=== PATIENT | female | born 1950 | race Caucasian/White ===

== ENCOUNTER 2017-08-11 13:49 | Inpatient (IN) | payer MEDICARE, OTHER ==
[2017-08-11] MEDS ORDERED: Morphine 4 MG/ML VIAL ONE ×3 (13:53→16:48)
[2017-08-11 15:31] LABS: #Eosinphils 0.1 thou/uL (0.0-0.7); #Monocytes 0.4 thou/uL (0.11-0.59); #Neutrophils 5.9 thou/uL (1.40-6.50); %Basophils 0.3 % (0.0-1.0); %Lymphocytes 13.9 % (21.0-51.0); %Monocytes 5.8 % (0.0-10.0); Hemoglobin 12.8 g/dL (12.0-16.0); Mean Corpuscular HGB CONC 33.2 g/dL (32.0-36.0); Mean Corpuscular Hemoglobin 31.3 pg (27.0-31.0); Mean Corpuscular Volume 94.2 fl (81.0-99.0); Mean Platelet Volume 6.8 fL (7.4-10.4); Platelet Count 233 thou/uL (130-400); RBC Distribution Width 11.1 % (11.5-14.5); Red Blood Cell (RBC) Count 4.09 mill/uL (4.20-5.40); White Blood Cell (WBC) Count 7.5 thou/uL (4.8-10.8)
--- NOTE | 2017-08-11 15:36 | RAD ---
LEFT SHOULDER RADIOGRAPHS 3 VIEWS: Date: 08/11/17 PROVIDED CLINICAL HISTORY: Left shoulder pain status post fall. FINDINGS: Comminuted fracture involves the left proximal humerus involving the greater tuberosity and surgical neck. The glenohumeral relationship is preserved. There is apex medial angulation at the surgical nec k fracture. There is a nodular density overlying the left upper lung zone, for which follow-up 2 view chest radiograph is recommended. IMPRESSION: 1. Comminuted left proximal humeral fracture. 2. Nodular density left upper lung zone, for which follow-up PA and lateral chest radiographs are re commended. CODE LN. POS: [facility]
--- NOTE | 2017-08-11 15:38 | RAD ---
LEFT KNEE RADIOGRAPHS 2 VIEWS: Date: 08/11/17 PROVIDED CLINICAL HISTORY: Left knee pain status post injury. FINDINGS: Evaluation is limited as the patient is unable to tolerate routine positioning. Transversely oriented , comminuted, not significantly displaced fracture involves the proximal tibial metaphyseal region. M ildly displaced fracture involves the left proximal fibular metaphyseal region. Nondisplaced lateral tibial plateau fracture may also be present. IMPRESSION: Proximal tibial and fibular fractures as above. Orthopedic consultation is recommended. POS: [facility]
--- NOTE | 2017-08-11 15:40 | RAD ---
LEFT FORELEG 2 VIEWS: Date: 08/11/17 PROVIDED CLINICAL HISTORY: Left leg pain. FINDINGS/IMPRESSION: Proximal fibular and tibial fractures are described on concurrent left knee radiographs. Please see t hat report. No additional fracture is evident. POS: [facility]
[2017-08-11 15:56] LABS: ALT (SGPT) 8 U/L (8-55); AST (SGOT) 16 U/L (5-34); Albumin 3.7 g/dL (3.4-4.8); Alkaline Phosphatase 53 U/L (40-150); Anion Gap 11 mmol/L (10-20); BUN (Urea Nitrogen) 13 mg/dL (9.8-20.1); Bilirubin, Total 0.8 mg/dL (0.2-1.2); Calc. Creatinine Clearance 0 mL/min (70-130); Calcium 8.5 mg/dL (7.8-10.44); Carbon Dioxide 21 mmol/L (23-31); Chloride 110 mmol/L (98-107); Estimated GFR-MDRD 80; Globulin 2.1 g/dL (2.4-3.5); Glucose 115 mg/dL (80-115); Potassium 3.2 mmol/L (3.5-5.1); Protein, Total 5.8 g/dL (6.0-8.3); Sodium 139 mmol/L (136-145)
[2017-08-11 15:58] LABS: CKMB 1.4 ng/mL (0-6.6); Troponin I Less than 0.010 ng/mL (< 0.028)
--- NOTE | 2017-08-11 16:15 | CT ---
CT LEFT KNEE: Date: 08/11/17 PROVIDED CLINICAL HISTORY: Fracture. FINDINGS: There is a comminuted fracture involving the left proximal tibial metaphyseal and epiphyseal regions. This demonstrates primarily obliquely oriented fracture plane extending from proximally medially to distally laterally at the proximal tibial metaphyseal region. There is conspicuous depressed fracture involving the lateral tibial plateau with about 8 mm of depression. Fracture planes extend into the central aspects of the proximal tibia in region of tibial eminence, as well as intraarticular at the anterior aspect of the medial tibial plateau. There is no significant step-off in the anterior aspec t of the medial tibial plateau fracture component. There is comminuted fracture involving the proximal fibular metaphyseal region extending into the reg ion of the fibular styloid. There is a large lipohemarthrosis. Fluid density is seen within portions of the soleus and popliteus musculature compatible with muscula r strains. IMPRESSION: 1. Comminuted intraarticular proximal tibial fracture as described above. 2. Comminuted proximal fibular fracture as described above. POS: [facility]
[2017-08-11] MEDS ORDERED: CEFAZOLIN/Water 2 GM/20 ML SYRINGE SLOW IVP SCH (16:30)
[2017-08-11 16:43] LABS: Bilirubin Negative (Negative); Blood, Urine Negative (Negative); Clarity CLEAR (Clear); Glucose, Urine (Dipstick) Negative (Negative); Leukocyte Negative (Negative); Nitrite Negative (Negative); Protein, Urine (Dipstick) Trace mg/dL (Neg-Trace); pH, Urine 7.5 (5.0-9.0)
[2017-08-11] MEDS ORDERED: Acetaminophen 500 MG TAB PO PRN (17:32)
[2017-08-11] MEDS ORDERED: Dextrose 50% Abboject 50 ML SYRINGE SLOW IVP PRN (17:32)
[2017-08-11] MEDS ORDERED: Ondansetron HCl/PF 4 MG/2 ML Vial IVP PRN (17:32)
[2017-08-11] MEDS ORDERED: Dextrose 5% in Water 1,000 ML IV PRN (17:32)
[2017-08-11] MEDS ORDERED: traMADol HCl 50 MG TAB PO PRN (19:16)
[2017-08-11 19:23] LABS: Magnesium 1.8 mg/dL (1.6-2.6)
[2017-08-11 19:30] LABS: Phosphorus Less than 1.0 mg/dL (2.3-4.7)
[2017-08-11] MEDS: Morphine 4 MG/ML VIAL SLOW IVP PRN ×2 (19:32→23:37)
--- NOTE | 2017-08-11 19:37 | HP ---
REQUESTING PHYSICIAN: Dr. Edmonds, ED. ADMITTING PHYSICIAN: Dr. Yasir Ramirez. CONSULTING PHYSICIAN: Dr. Resendez, Orthopedics; Dr. Jean, Cardiology. HISTORY OF PRESENT ILLNESS: Ms. Aguila is a 66-year-old female who was in her normal state of health today. She was up on a ladder, making repairs to her home approximately 3-4 feet. She slipped and fell off the ladder, landing on her left side. She reports that she did not lose consciousness. She was not dizzy prior to the fall. She was attempting to turn around on the ladder when she fell. She had pain to her left knee and left arm. She was transported to the emergency department where workup identified a left proximal humerus fracture and a left proximal tib/fib fracture. Trauma Services was consulted for admission and management. Dr. Resendez was also consulted for management of orthopedic injuries. She reports that pain is exacerbated by movement. Pain has been relieved by administration of pain medication. PAST MEDICAL HISTORY: 1. Hyperlipidemia. 2. High cholesterol. 3. Mitral valve prolapse. 4. Cardiomyopathy. 5. Left bundle branch block. 6. Paroxysmal atrial tachycardia. 7. Congestive heart failure. PAST SURGICAL HISTORY: 1. Hysterectomy. 2. D&C. SOCIAL HISTORY: Denies tobacco, denies alcohol, denies drugs. FAMILY HISTORY: Noncontributory. ALLERGIES: No known drug allergies. CURRENT MEDICATIONS: 1. Aspirin 81 mg once daily. 2. Lasix 20 mg twice daily. 3. Carvedilol 6.25 mg twice daily. 4. Lisinopril 10 mg once daily. 5. Potassium 10 mEq twice daily. LABORATORY DATA: Hematology: WBC 7.5, RBC 4.09, hemoglobin 12.8, hematocrit 38.5, platelets 233. Chemistry: Sodium 139, potassium 3.2, chloride 110, carbon dioxide 21, BUN 13, creatinine 0.73, glucose 115. REVIEW OF SYSTEMS: Constitutional: The patient denies chills, fever, recent weight loss or general malaise. HEENT: Denies drainage from nose or ears. Denies vision changes. Denies neck pain. Cardiovascular: Denies chest pain, palpitations or peripheral edema. Respiratory: Denies cough, denies shortness of breath. Denies wheezing. Gastrointestinal: Denies abdominal pain, denies nausea, vomiting, diarrhea or constipation. Musculoskeletal: Reports left shoulder pain, left knee pain, reports fall from ladder. Skin: Denies rashes. Denies other injury. Neurologic: Denies focal weakness, denies headaches, denies dizziness. Denies seizures. Heme/Lymphatic: Denies abnormal bleeding. PHYSICAL EXAMINATION: VITAL SIGNS: Blood pressure 151/77, pulse 77, respirations 14, O2 sat 98% on room air. GENERAL: Well-developed, well-nourished female, lying in bed, in no acute distress. HEENT: Atraumatic, normocephalic. Trachea midline. No JVD. No posterior neck tenderness. RESPIRATORY: Bilateral breath sounds clear. No respiratory distress. Chest movement symmetrical. No pain to palpation on chest. CARDIOVASCULAR: Regular rate and rhythm. Heart sounds normal. ABDOMEN: Soft, nontender, nondistended. BACK: No pain. NEUROLOGIC: GCS of 15. Awake, alert, oriented x3. No focal motor or sensory deficits. EXTREMITIES: Pain in her left arm, sling in place. Pain to the left knee and left near the tibia area. Neurovascularly intact all extremities. Cap refill brisk in all extremities. SKIN: Warm and dry, color within normal limits. PSYCHIATRIC: Normal mood and affect. ASSESSMENT: 1. Status post fall from ladder. 2. Left proximal humerus fracture. 3. Left proximal tibia fracture. 4. History of cardiomyopathy with left bundle branch block and mitral valve prolapse. The patient is a longtime patient of Dr. Nguyen, Cardiology. 5. Acute traumatic pain. PLAN: 1. Admit to hospital by Trauma Services. 2. Consult to Dr. Resendez, Orthopedics. Dr. Resendez plans to take patient to the operating room for fixation of left tibial fracture, preferably tomorrow. 3. Cardiology consult, Dr. Jean. I appreciate recommendations. 4. Cardiac diet until midnight. N.p.o. after midnight. 5. Electrolyte replacement. We will replace potassium. 6. Restart home medications when medications are reconciled after floor admission. The patient was reviewed with Dr. Ramirez, who agrees with plan. [facility]
[2017-08-11] MEDS ORDERED: Potassium Phosphate 30 MMOL in Sodium Chloride 0.9% 500 ML IVPB SCH (20:00)
--- NOTE | 2017-08-11 20:44 | CON ---
DATE OF CONSULTATION: 08/11/2017 REASON FOR CONSULTATION: Preoperative evaluation. PRIMARY SLIMER: Dr. Adama Nguyen. HISTORY OF PRESENT ILLNESS: Ms. Aguila is a pleasant 66-year-old white female who comes to the [facility] after a fall. She was on a ladder, repairing some things on her home and she slipped and fell on her left side. She broke her leg and her arm, the proximal tibia and humerus, and is scheduled to patiño surgery for this tomorrow. She has significant history of a cardiomyopathy. She actually was jo gnosed in 2013 with nonischemic cardiomyopathy. Her EF was severely depressed at that time. 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 She got on medications and her LV function eventually returned back to normal. She followed with Dr. Nguyen for about 2 years, the last visit was in 01/2016. Her last echocardiogram was in 02/07 16 with an EF of 55% to 60% with mild MR and diastolic dysfunction. She has not had any problems sin ce. She has been followed up either. She denies any chest pain, tightness, pressure, no shortness o f breath. PAST MEDICAL HISTORY: 1. Hyperlipidemia. 2. History of supraventricular tachycardia in the distant past. 3. History of nonischemic cardiomyopathy, improved significantly with medications, thought to be vir al in origin. 4. History of mitral valve prolapse, but this was negated on most recent echocardiogram. PAST SURGICAL HISTORY: 1. Hysterectomy. 2. D&C. 3. Left heart catheterization that was normal in 2013. OUTPATIENT MEDICATIONS: 1. Aspirin 81 mg a day. 2. Lasix 20 mg twice a day. 3. Carvedilol 6.25 mg b.i.d. 4. Lisinopril 10 mg a day. 5. Potassium 10 mEq twice a day. ALLERGIES: No known drug allergies. FAMILY HISTORY: Noncontributory. SOCIAL HISTORY: No alcohol, tobacco or drugs. REVIEW OF SYSTEMS: A 12-point review of systems was done and is all negative unless stated in the hi story of present illness. PHYSICAL EXAMINATION: VITAL SIGNS: Temperature 97.6, pulse 83, respiratory rate 18, satting 100% on room air, blood pressu re 143/77. GENERAL: Awake, alert, oriented x3, in no distress. HEENT: Normocephalic, atraumatic. NECK: Supple. LUNGS: Clear to auscultation. CARDIOVASCULAR: S1, S2. No S3, S4. No murmurs, no rubs. ABDOMEN: Soft, positive bowel sounds. EXTREMITIES: No edema. SKIN: Warm and dry. LABORATORY DATA: Laboratory work was reviewed. CBC is unremarkable. Chemistry with a low potassium at 3.2, otherwise unremarkable. Phosphorus was less than 1, magnesium 1.8. Troponin is negative x1 . Albumin of 3.7. UA was unremarkable. Multiple x-rays and lower extremity CTs were done. EKG was done in the ER shows left bundle branch block. ASSESSMENT: 1. Preoperative evaluation. 2. History of nonischemic cardiomyopathy in the distant past. 3. Normal coronaries in 2013. 4. Chronic left bundle branch block. PLAN: She is asymptomatic from the cardiac perspective and she has improved to her LV function to no rmal from an echo in 2016. At this point, we will ask to reevaluate with an echocardiogram to make s ure her LV function remains normal. This is mostly to know what to expect with anesthesia and use of IV fluids. She should be able to undergo said surgery. She would be intermediate risk for an inter mediate risk procedure. Echocardiogram and surgery after that. Thank you for letting us to participate in the care of your patient. Dr. Nguyen, her primary Cardi ology, will follow up in the morning.
[2017-08-11] MEDS: Carvedilol 6.25 MG TAB PO SCH (21:02)
[2017-08-11] MEDS: Acetaminophen 1,000 MG in Premix Bag 1 BAG IVPB SCH (23:44)
[2017-08-12] MEDS: Sodium Chloride 0.9% 1,000 ML IV SCH ×3 (01:29→18:07)
[2017-08-12] MEDS: Morphine 4 MG/ML VIAL SLOW IVP PRN ×3 (04:07→16:24)
[2017-08-12 05:30] LABS: #Lymphocytes 1.6 thou/uL (1.20-3.40); #Monocytes 0.6 thou/uL (0.11-0.59); #Neutrophils 5.7 thou/uL (1.40-6.50); %Basophils 0.1 % (0.0-1.0); %Eosinophils 0.5 % (0.0-10.0); %Lymphocytes 19.8 % (21.0-51.0); %Monocytes 7.8 % (0.0-10.0); %Neutrophils 71.8 % (42.0-75.0); Hemoglobin 11.5 g/dL (12.0-16.0); Mean Corpuscular HGB CONC 34.1 g/dL (32.0-36.0); Mean Corpuscular Hemoglobin 31.4 pg (27.0-31.0); Mean Corpuscular Volume 92.1 fl (81.0-99.0); Mean Platelet Volume 6.9 fL (7.4-10.4); Platelet Count 216 thou/uL (130-400); RBC Distribution Width 11.2 % (11.5-14.5); Red Blood Cell (RBC) Count 3.67 mill/uL (4.20-5.40)
[2017-08-12 05:45] LABS: Anion Gap 11 mmol/L (10-20); BUN (Urea Nitrogen) 12 mg/dL (9.8-20.1); Calc. Creatinine Clearance 0 mL/min (70-130); Calcium 8.9 mg/dL (7.8-10.44); Carbon Dioxide 23 mmol/L (23-31); Chloride 105 mmol/L (98-107); Estimated GFR-MDRD 81; Glucose 125 mg/dL (80-115); Magnesium 2.2 mg/dL (1.6-2.6); Phosphorus 4.3 mg/dL (2.3-4.7); Potassium 3.9 mmol/L (3.5-5.1); Sodium 135 mmol/L (136-145)
[2017-08-12] MEDS: Acetaminophen 1,000 MG in Premix Bag 1 BAG IVPB SCH ×2 (06:32→16:08)
[2017-08-12] MEDS: Carvedilol 6.25 MG TAB PO SCH ×2 (06:32→20:51)
[2017-08-12] MEDS: Lisinopril 20 MG TAB PO SCH (08:16)
[2017-08-12] MEDS ORDERED: Prevnar 13-Val Conj/PF 0.5 ML SYRINGE IM ONE (09:00)
[2017-08-12] MEDS ORDERED: FLU VACC TS2017-18 (>65YR) 0.5 ML SYRINGE IM ONE (09:00)
--- NOTE | 2017-08-12 09:03 | CON ---
DATE OF CONSULTATION: 08/12/2017 ORTHOPEDIC CONSULTATION NOTE REQUESTING PHYSICIAN: Dr. Yasir Ramirez. HISTORY OF PRESENT ILLNESS: Ms. Aguila is a pleasant 66-year-old lady who was accompanied by her husb and in the emergency room this evening. They report that she was standing on a ladder to make some h ome repairs and fell approximately 3-4 feet, landing on her left side. There was no loss of consciou sness. She was not dizzy prior to the fall. She reports immediate left knee pain and left proximal humerus pain. Upon arrival at [facility], x-rays were obtained that showed a left tibial plateau fra cture with bicondylar as well as a left proximal humerus fracture that involved the tuberosities as w ell as the surgical neck of the humerus. Patient now admitted to the Trauma Service and orthopedic c onsultation requested for the above described injuries. PAST MEDICAL HISTORY: Remarkable for hyperlipidemia, mitral valve prolapse, cardiomyopathy, bundle b ranch block, and paroxysmal atrial tachycardia. PAST SURGICAL HISTORY: Includes hysterectomy and D&C. SOCIAL HISTORY: She denies tobacco, alcohol, or drugs. FAMILY HISTORY: Noncontributory. MEDICATIONS: Include aspirin, Lasix, carvedilol, lisinopril and potassium replacement. ALLERGIES: None known. REVIEW OF SYSTEMS: Denies recent fevers, chills or sweats. Denies chest pain or shortness of breath . Denies numbness or tingling in the lower extremities. PHYSICAL EXAMINATION: VITAL SIGNS: Blood pressure 151/77, heart rate 77, respiratory rate of 14, O2 saturations 98% on cindy m air. GENERAL: She is found to be a very pleasant lady lying in bed in no acute distress. Again, is at bedside. HEENT: Atraumatic, normocephalic. HEART: Shows a regular rate and rhythm. She does have a slight systolic ejection murmur. LUNGS: Clear to auscultation bilaterally with no distress and good air movement. Chest wall is nont david. ABDOMEN: Flat and nontender with normal bowel sounds. EXTREMITIES: Remarkable for right upper extremity that is atraumatic. The left upper extremity is r emarkable for swelling at the shoulder, although elbow, wrist and hand are atraumatic. The arm is in a sling at the time of exam. She has intact sensation in the radial, median, and ulnar distribution s. The lower extremities are remarkable for an atraumatic right lower extremity. The left lower ext remity is remarkable for a knee immobilizer that is in place. She has no pain in the groin with logr olling. She has atraumatic ankle and foot. She has intact sensation over the dorsum and plantar raul faces of the foot and a 1+ dorsalis pedis pulse. The knee is remarkable for hemarthrosis, although n o gross malalignment is noted. Her calf compartments are soft and she does not have pain with passiv e stretch. LABORATORY DATA AND IMAGING DATA: She is found to have a white count of 7.5, hematocrit of 38.5 and 233,000 platelets. X-rays today, 2-view x-ray of the shoulder was obtained that shows a 3-part proxi mal humerus fracture with minimal displacement. X-rays of the knee were obtained on the left side th at show a bicondylar tibial plateau fracture with joint depression laterally and follow up CT scan of the left proximal tibia confirmed the bicondylar nature of this fracture as well as the significant joint depression on the lateral side. ASSESSMENT: Patient is status post fall from ladder sustaining left proximal humerus fracture, left comminuted tibial plateau fracture. The patient with significant history of cardiomyopathy. PLAN: At this time, patient will be admitted to Trauma Service. We will obtain a Cardiology consult ation given the extensive history. The patient has pending the outcome of this on Cardiology consult ation. We will plan on proceeding with open reduction and internal fixation of the left tibial plate au. We will proceed with nonsurgical management of the left proximal humerus. Today, I discussed wi th patient the risks and benefits of surgery. These risks include but are not limited to bleeding, i nfection, nerve injury, DVT, PE, knee arthritis, loss of limb or life. Patient appears to understand and does wish to proceed. Consent will be obtained prior to surgery.
--- NOTE | 2017-08-12 11:25 | PRG-2 ---
DATE OF SERVICE: 08/12/2017 ATTENDING PHYSICIAN: Dr. Adrian Clark. SUBJECTIVE: Ms. Aguila is a 66-year-old female, status post a fall from a ladder about 3-4 feet yesterday. The patient sustained a left proximal humerus fracture and a left tibial plateau fracture. She reports that her pain is controlled with pain medications as long as she is not moving her arm or leg. The patient is still pending surgery at this time. OBJECTIVE: VITAL SIGNS: Temperature 97.6, pulse 92, blood pressure 117/71, respiratory rate 14, O2 sat 98% on room air. GENERAL: A well-developed, well-nourished female, in no acute distress. HEENT: Normocephalic, atraumatic. Moist mucous membranes. RESPIRATORY: No use of accessory muscles of respiration. LUNGS: Clear to auscultation bilaterally. CARDIOVASCULAR: Regular rate and rhythm. ABDOMEN: Nondistended, soft, nontender. NEUROLOGIC: GCS of 15, awake, alert, and oriented x3. EXTREMITIES: Left arm immobilized with sling in place. Pain in the left knee. Cap refill less than 1 second in all extremities. ASSESSMENT: 1. Status post fall from the ladder approximately 3-4 feet. 2. Left proximal humerus fracture. 3. Left proximal tibia fracture. 4. History of nonischemic cardiomyopathy with a left bundle branch block and mitral valve prolapse. 5. Acute traumatic pain. PLAN: 1. Surgery today with Dr. Resendez of Orthopedics, pending echo results for cardiac clearance with the patient's cardiomyopathy history. 2. Pain control with morphine, tramadol, and IV Tylenol. We will transition to p.o. after surgery. 3. NS at 120. 4. N.p.o. until surgery. After surgery, we will advance diet as tolerated. 5. Continue home medications for her nonischemic cardiomyopathy. The patient was reviewed with Dr. Clark, who agrees with the plan. [facility]
[2017-08-12] MEDS ORDERED: CEFAZOLIN/Water 2 GM/20 ML SYRINGE ONE (11:46)
[2017-08-12] MEDS ORDERED: Bupivacaine/Epinephrine 0.25% 30 ML VIAL ONE (12:19)
[2017-08-12] MEDS ORDERED: Fentanyl 250 MCG/5 ML VIAL ONE (13:40)
[2017-08-12] MEDS ORDERED: Ondansetron HCl/PF 4 MG/2 ML Vial IVP PRN (14:09)
[2017-08-12] MEDS ORDERED: Promethazine HCl 25 MG/ML VIAL SLOW IVP PRN (14:09)
[2017-08-12] MEDS ORDERED: Promethazine HCl 25 MG/ML VIAL IM PRN (14:09)
--- NOTE | 2017-08-12 14:38 | OP ---
DATE OF PROCEDURE: 08/12/2017 OPERATION: Open reduction and internal fixation of left bicondylar tibial plateau fracture. PREOPERATIVE DIAGNOSIS: Left bicondylar tibial plateau fracture. POSTOPERATIVE DIAGNOSIS: Left bicondylar tibial plateau fracture. COMPLICATIONS: None. ESTIMATED BLOOD LOSS: Minimal. SURGEON: Yosi Lee M.D. ANESTHESIA: General plus regional. [employer]PER[employer] HEARTH FURNACE: Jaclyn Chadwick PA-C INDICATIONS: Ms. Aguila is a 66-year-old female, who fell from a ladder. She fractured her left bico ndylar tibial plateau as well as her left humerus. She was indicated for open reduction and internal fixation to restore anatomic alignment and promote healing. Risks have been reviewed in detail. e has elected to proceed with the operation. DESCRIPTION OF PROCEDURE: Ms. Aguila was identified in the preoperative holding area. Her correct ex tremity was marked. She was carried to the operating room. She was positioned supine. General anes thesia was induced. A multidisciplinary timeout was performed. The left lower extremity was prepped and draped in sterile fashion. We began the procedure with a posterior medial approach to the tibia. We dissected down through the subcutaneous tissues to the fascia, which was incised. We then worked down to the bony level. We us ed an elevator to expose the posteromedial cortex of the tibia. We encountered the fracture in a red uced, this using traction and a reduction clamp. Once we had an anatomic reduction, we took x-rays c onfirming this. At this point, we applied a [employer] posterior medial tibial plate. Multiple screws were placed distally and proximally. We locked the plate to the bone, fixing our medial sided fractu re. Again, we took x-ray images. Next, we moved to the lateral tibia. We made an anterior lateral incision, dissected down through the subcutaneous tissues to the fascia, which was opened. We expose d the underlying lateral tibial plateau. We performed a submeniscal approach as well. At this point , we reflected the lateral tibial cortex exposing the underlying impacted joint surface. This articu lar fragment was anatomically reduced using a reduction forceps back to the lateral cortex. It was e levated back into its anatomic position. At this point, the lateral cortex was folded back into plac e and squeeze with a reduction clamp. We then took x-ray images. We placed a lateral plate in place , multiple locking and nonlocking screws proximally and distally, affixing our plate to the bone and performing a raft technique for our impacted articular fragments. Again, we irrigated. We then clos ed with 0 Vicryl suture, 2-0 Vicryl suture and kalpana for the skin. Local anesthetic was placed. T he patient had a sterile dressing applied. We then went to the recovery room in good condition. IMPLANTS: A [employer] anterior lateral tibial plate 3.5 mm locking and 4-hole posterior medial locking plate was used from [employer].
[2017-08-12] MEDS ORDERED: Fentanyl 100 MCG/2 ML VIAL ONE ×2 (14:44→15:08)
[2017-08-12] MEDS ORDERED: PHENYLEPHRINE-NS 100 MCG/ML 10 ML SYRINGE ONE (15:43)
[2017-08-12] MEDS ORDERED: Dexamethasone 20 MG/5 ML VIAL ONE (15:43)
[2017-08-12] MEDS ORDERED: Lidocaine 1% PF 5 ML VIAL ONE (15:43)
[2017-08-12] MEDS ORDERED: Ondansetron HCl/PF 4 MG/2 ML Vial ONE (15:43)
[2017-08-12] MEDS ORDERED: PROPOFOL 200 MG/20 ML VIAL ONE (15:43)
[2017-08-12] MEDS ORDERED: Acetaminophen 1,000 MG in Premix Bag 1 BAG IVPB SCH (15:45)
[2017-08-12] MEDS ORDERED: traMADol HCl 50 MG TAB PO PRN (16:44)
[2017-08-12] MEDS: Ibuprofen 600 MG TAB PO SCH ×2 (17:42→23:01)
[2017-08-12] MEDS: Acetaminophen 500 MG TAB PO SCH ×2 (17:42→23:00)
[2017-08-12] MEDS: traMADol HCl 50 MG TAB PO SCH ×2 (17:42→23:00)
--- NOTE | 2017-08-12 17:55 | RAD ---
LEFT TIBIA AND FIBULA 2 VIEWS: Date: 08/12/17 HISTORY: Open reduction and internal fixation. COMPARISON: CT dated 08/11/17. FINDINGS: Improved alignment of the tibial plateau fracture with medial and lateral plate and screw fixation. C omminuted fibular head and neck fracture similar. IMPRESSION: Improved alignment post fixation. POS: [facility]
[2017-08-12] MEDS ORDERED: Furosemide 20 MG TAB PO SCH (20:45)
[2017-08-12] MEDS: HYDROcodone/Acetaminophen 10/325 mg Tablet PO PRN (20:51)
[2017-08-12] MEDS: CEFAZOLIN/Water 2 GM/20 ML SYRINGE SLOW IVP SCH (20:52)
[2017-08-13] MEDS: HYDROcodone/Acetaminophen 10/325 mg Tablet PO PRN (03:01)
[2017-08-13] MEDS: CEFAZOLIN/Water 2 GM/20 ML SYRINGE SLOW IVP SCH (03:07)
[2017-08-13] MEDS: Ibuprofen 600 MG TAB PO SCH (05:00)
[2017-08-13] MEDS: Acetaminophen 500 MG TAB PO SCH ×2 (05:01→09:10)
[2017-08-13] MEDS: traMADol HCl 50 MG TAB PO SCH ×4 (05:01→21:16)
[2017-08-13] MEDS ORDERED: Furosemide 20 MG TAB PO SCH ×2 (06:00→14:00)
[2017-08-13] MEDS: Enoxaparin Sodium 40 MG/0.4 ML SYRINGE SC SCH (09:10)
[2017-08-13] MEDS: Gabapentin 300 MG CAP PO SCH ×2 (09:11→21:17)
[2017-08-13] MEDS: Carvedilol 6.25 MG TAB PO SCH ×2 (09:11→20:44)
[2017-08-13] MEDS: Lisinopril 20 MG TAB PO SCH (09:11)
[2017-08-13] MEDS ORDERED: HYDROcodone/Acetaminophen 10/325 mg Tablet PO PRN (10:59)
[2017-08-13] MEDS ORDERED: Acetaminophen 500 MG TAB PO SCH (11:00)
--- NOTE | 2017-08-13 11:09 | PRG-2 ---
DATE OF SERVICE: 08/13/2017 ATTENDING PHYSICIAN: Dr. Adrian Clark. SUBJECTIVE: Ms. Augila is a 66-year-old female, who sustained a fall from a ladder about 3-4 feet on 08/11/2017. The patient sustained a left proximal humerus fracture and left tibial plateau fracture. She is postoperative day #1, status post open reduction and internal fixation of the left tibial pl ateau fracture. The patient reports that she was in a lot of pain overnight and did not sleep very w ell; however, she is feeling much better as of about 4:00 a.m. this morning and her pain is much bett er controlled. The patient has not yet worked with physical therapy. OBJECTIVE: VITAL SIGNS: Temperature 97.9, pulse 86, respiratory rate 18, O2 sat 95% on room air, blood pressure 129/74. GENERAL: A well-developed, well-nourished female, lying in bed, in no acute distress. HEENT: Normocephalic, atraumatic. Moist mucous membranes. RESPIRATORY: No use of accessory muscles of respiration. Clear to auscultation bilaterally with no wheezing, rales, or rhonchi. CARDIOVASCULAR: Regular rate and rhythm, a 1+ pitting edema in the left lower extremity. ABDOMEN: Nondistended, soft, nontender. NEUROLOGIC: GCS of 15. Awake, alert, oriented x3. EXTREMITIES: Left arm immobilizer sling in place. Tender to palpation. Pain in the left knee, immo bilized left leg. Cap refill brisk in all extremities. ASSESSMENT: 1. Status post fall from a ladder, approximately 3-4 feet. 2. Left proximal humerus fracture. 3. Left proximal tibia fracture. 4. History of nonischemic cardiomyopathy with left bundle branch block and mitral valve prolapse. 5. Acute traumatic pain. PLAN: 1. Pain control with tramadol, Tylenol, ibuprofen, and we will add Neurontin today. 2. Discontinue IV fluids. 3. Regular diet. 4. Discontinue Parker. 5. PT/OT consult and rehabilitation screen. 6. Lovenox for VTE prophylaxis. 7. Continue medications for nonischemic cardiomyopathy. The patient was reviewed with Dr. Clark, who agrees with the plan.
[2017-08-13] MEDS ORDERED: Sodium Chloride 0.9% 500 ML IV SCH ×2 (12:15→19:00)
[2017-08-13] MEDS: Ibuprofen 200 MG TAB PO SCH ×2 (13:52→21:17)
[2017-08-13] MEDS: Potassium Chloride 10 MEQ TAB PO SCH (17:26)
[2017-08-13] MEDS: Acetaminophen 325 MG TAB PO SCH (17:26)
[2017-08-13] MEDS ORDERED: Ondansetron ODT 4 MG TAB PO PRN (18:13)
[2017-08-13] MEDS ORDERED: Hydrocortisone Sod Succ/PF 100 mg/2 ml Vial IVP SCH (19:00)
[2017-08-14] MEDS: Acetaminophen 325 MG TAB PO SCH ×3 (00:07→11:33)
[2017-08-14] MEDS: traMADol HCl 50 MG TAB PO SCH ×3 (02:16→14:40)
[2017-08-14] MEDS: Hydrocortisone Sod Succ/PF 100 mg/2 ml Vial IVP SCH ×2 (04:48→11:29)
[2017-08-14 05:45] LABS: #Lymphocytes 0.8 thou/uL (1.20-3.40); #Monocytes 0.7 thou/uL (0.11-0.59); #Neutrophils 7.9 thou/uL (1.40-6.50); %Basophils 0.1 % (0.0-1.0); %Eosinophils 0.1 % (0.0-10.0); %Lymphocytes 8.3 % (21.0-51.0); %Monocytes 7.2 % (0.0-10.0); %Neutrophils 84.4 % (42.0-75.0); Hemoglobin 8.2 g/dL (12.0-16.0); Mean Corpuscular HGB CONC 34.5 g/dL (32.0-36.0); Mean Corpuscular Hemoglobin 32.2 pg (27.0-31.0); Mean Corpuscular Volume 93.5 fl (81.0-99.0); Mean Platelet Volume 7.3 fL (7.4-10.4); Platelet Count 170 thou/uL (130-400); RBC Distribution Width 11.1 % (11.5-14.5); Red Blood Cell (RBC) Count 2.55 mill/uL (4.20-5.40); White Blood Cell (WBC) Count 9.4 thou/uL (4.8-10.8)
[2017-08-14 06:06] LABS: Anion Gap 8 mmol/L (10-20); BUN (Urea Nitrogen) 13 mg/dL (9.8-20.1); Calc. Creatinine Clearance 0 mL/min (70-130); Calcium 9.2 mg/dL (7.8-10.44); Carbon Dioxide 27 mmol/L (23-31); Chloride 99 mmol/L (98-107); Estimated GFR-MDRD 77; Glucose 132 mg/dL (80-115); Phosphorus 2.4 mg/dL (2.3-4.7); Potassium 3.8 mmol/L (3.5-5.1); Sodium 130 mmol/L (136-145)
[2017-08-14] MEDS: Ibuprofen 200 MG TAB PO SCH ×2 (06:49→14:40)
[2017-08-14] MEDS ORDERED: Potassium Chloride 20 MEQ TAB PO SCH (07:30)
[2017-08-14] MEDS ORDERED: Sodium Chloride 0.9% 500 ML IV SCH (07:45)
[2017-08-14] MEDS: Carvedilol 6.25 MG TAB PO SCH (07:56)
[2017-08-14] MEDS: Potassium Chloride 10 MEQ TAB PO SCH (08:03)
[2017-08-14] MEDS: Gabapentin 300 MG CAP PO SCH (08:03)
[2017-08-14] MEDS: Enoxaparin Sodium 40 MG/0.4 ML SYRINGE SC SCH (08:03)
[2017-08-14] MEDS ORDERED: Lisinopril 20 MG TAB PO SCH (09:00)
[2017-08-14] MEDS ORDERED: Senokot S 8.6-50 MG TAB PO SCH ×2 (09:00→21:00)
[2017-08-14] MEDS ORDERED: Polyethylene Glycol 3350 17 GM Packet PO SCH (09:00)
--- NOTE | 2017-08-14 11:17 | PRG-2 ---
DATE OF SERVICE: 08/14/2017 ATTENDING PHYSICIAN: Adrian Clark DO SUBJECTIVE: Ms. Aguila is a 66-year-old female who sustained a fall from a ladder about 3-4 feet on 0 08/11/2017. The patient sustained a left proximal humerus fracture, left tibial plateau fracture. Sh e is postoperative day #2 status post open reduction internal fixation of the left tibial plateau fra cture. The patient reports that her pain has been much better controlled and she has been able to wo rk with physical therapy without difficulty. The patient has voided without difficulty after having Parker removed. The patient is tolerating p.o. OBJECTIVE: VITAL SIGNS: Temperature 97.6, pulse 83, respiratory rate 20, O2 sat 93% on room air, blood pressure 100/62. GENERAL: Well-developed, well-nourished female, sitting up in bed, in no acute distress. HEENT: Normocephalic, atraumatic. Moist mucous membranes. RESPIRATORY: No use of accessory muscles of respiration. Clear to auscultation bilaterally with no wheezing, rales or rhonchi. CARDIOVASCULAR: Regular rate and rhythm, 1+ pitting edema in the left lower extremity. ABDOMEN: Normoactive bowel sounds, nondistended, soft, nontender. NEUROLOGIC: GCS of 15. Awake, alert, oriented x3. EXTREMITIES: Left arm immobilizer sling in place. Left shoulder tender to palpation. Left knee imm obilized. Cap refill brisk in all 4 extremities. ASSESSMENT: 1. Status post fall from a ladder approximately 3-4 feet. 2. Left proximal humerus fracture. 3. Left proximal tibia fracture. 4. History of nonischemic cardiomyopathy with left bundle-branch block and mitral valve prolapse. 5. Acute renal insufficiency. 6. Acute traumatic pain. PLAN: 1. Pain control with tramadol, Tylenol, ibuprofen, Neurontin. 2. Regular diet. 3. Bowel regimen with MiraLax, Senokot, and docusate. 4. Continue PT and OT. 5. Hydrocortisone 50 mg IV q.8 hours for adrenal insufficiency. 6. Lovenox for VTE prophylaxis. 7. Continue medications for nonischemic cardiomyopathy. 8. Discharged to rehab once approved. 9. Dr. Clark saw and examined the patient and formulated the plan with me.
[2017-08-14 12:27] VITALS: TEMP 98.2
[2017-08-14 13:35] VITALS: BP 118/67
--- NOTE | 2017-08-15 01:09 | DIS ---
DATE OF ADMISSION: 08/11/2017 DATE OF DISCHARGE: 08/14/2017 ADMITTING PHYSICIAN: Dr. Yasir Ramirez. DISCHARGING PHYSICIAN: Dr. Adrian Clark. ADMISSION DIAGNOSES: 1. Status post fall from the ladder. 2. Left proximal humerus fracture. 3. Left proximal tibia fracture. 4. History of cardiomyopathy with left bundle branch block and mitral valve prolapse. The patient i s a longtime patient of Dr. Nguyen, Cardiology. 5. Acute traumatic pain. DISCHARGE DIAGNOSES: 1. Status post fall from the ladder. 2. Left proximal humerus fracture. 3. Left proximal tibia fracture. 4. History of cardiomyopathy with left bundle branch block and mitral valve prolapse. The patient i s a longtime patient of Dr. Nguyen Cardiology. 5. Acute traumatic pain. PROCEDURES PERFORMED: Open reduction internal fixation of left bicondylar tibial plateau fracture. HOSPITAL COURSE: Ms. Aguila is a 66-year-old female who fell approximately 3-4 feet off the ladder, l anding on her left side. She was transported to the [facility] [facility] ED where she was found to have a left proximal humerus fracture and left proximal tibial plateau fracture. Trauma Services was consulted for admission and Orthopedic Surgery was consulted for surgical management. The patient underwent bustamante rgical open reduction internal fixation of her tibia fracture on 08/11/2017. She was then transferre d to the surgical floor where she remained for the rest of her stay. She developed hypotension posto peratively. The patient was given fluid boluses. Also, serum cortisol was drawn and the patient was given hydrocortisone, which resulted in improved blood pressure. The patient was discharged in a st able condition to rehab on 08/14/2017. DISCHARGE MEDICATIONS: The patient was discharged to rehab with all of her home medications with the exception of lisinopril and Lasix. These were stopped given her low blood pressure. ACTIVITY INSTRUCTIONS: The patient was discharged with instructions for activity as tolerated. Orth opedic limitations include no weightbearing on the left leg. Weightbearing as tolerated on the left arm. NOURISHMENT INSTRUCTIONS: The patient discharged on a regular diet. THERAPY INSTRUCTIONS: The patient to receive physical and occupational therapy, and rehabilitation. EQUIPMENT AND SUPPLIES: The patient has a brace on her left knee. This is to be worn for all out of bed activities. FOLLOWUP INSTRUCTIONS: The patient instructed to follow up with Dr. Yosi Lee in 14 days . The patient also instructed to follow up with her primary care physician in 7 days. The patient h as no formal followup with Dr. Clark. However, he remains available for questions or concerns. This patient was seen on rounds this morning with Dr. Adrian Clark, who agrees with this discharge p hudson.
--- NOTE | 2017-08-24 22:58 | EKG ---
Test Reason : Blood Pressure : / mmHG Vent. Rate : 077 BPM Atrial Rate : 077 BPM P-R Int : 166 ms QRS Dur : 132 ms QT Int : 444 ms P-R-T Axes : 059 -40 094 degrees QTc Int : 502 ms Normal sinus rhythm Possible Left atrial enlargement Left axis deviation Left bundle branch block Abnormal ECG Confirmed by MAYDA SHRESTHA, ELIJAH ([id number]), film or videotape editor LILY CAMARGO ([id number]) on 08/24/2017 10:57:53 PM Referred By: KELSY OHARA Confirmed By:ELIJAH OHARA MD
== END 2017-08-14 16:17 | DRG 493 ==
LOC: ERS 13:49 → SURG A 15:32
PROVIDERS: ADMIT Surgery; ATTEND Surgery
PROC: 0QSH04Z Reposition Left Tibia with Internal Fixation Device, Open Approach (ICD-10-PCS; principal; 2017-08-12)
DX: S82.142A Displaced bicondylar fracture of left tibia, initial encounter for closed fracture (principal); I42.9 Cardiomyopathy, unspecified; I47.1 Supraventricular tachycardia; S42.232A 3-part fracture of surgical neck of left humerus, initial encounter for closed fracture; I44.7 Left bundle-branch block, unspecified; I34.1 Nonrheumatic mitral (valve) prolapse; I95.81 Postprocedural hypotension; N28.9 Disorder of kidney and ureter, unspecified; E78.5 Hyperlipidemia, unspecified; S82.452A Displaced comminuted fracture of shaft of left fibula, initial encounter for closed fracture
CPT/HCPCS: 36415; 76001; 80048; 80053; 81003; 82533; 82553; 83735; 84100; 84484; 85025; 93005; 93306; 96374; 96376; C1713; G8978-GP-CL; G8979-GP-CJ; G8987-GO-CK; G8988-GO-CI; J0131; J1100; J1650; J1720; J2001; J2270; J2405; J2704; J3010; J7050

== ENCOUNTER 2018-09-18 14:33 | Outpatient (CLI) | payer MEDICARE, OTHER ==
--- NOTE | 2018-09-18 15:38 | BD ---
Exam: DEXA Bone Density 09/18/18 HISTORY: Postmenopausal screening for osteoporosis. Lumbar Spine: BMD (g/cm2) T-SCORE Z-SCORE L1 0.720 -2.5 -0.7 L2 0.765 -2.4 -0.5 L3 0.847 -2.2 -0.1 L4 0.966 -0.9 1.2 L1-L4 0.830 -2.0 0.0 Femoral Neck: 0.556 -0.6 -1.0 Total Femur: 0.745 -1.6 -0.2 There has been interval reduction of 5% of BMD of the lumbar spine and reduction of 9.1% of BMD of th e proximal femur since 04/16/16. Impression: Osteoporosis. POS: DONAVAN
--- NOTE | 2018-09-18 15:45 | MMO ---
Bilateral MAMMO Bilat Screen [facility]. CLINICAL HISTORY: Patient is 67 years old and is seen for screening. VIEWS: The views performed were: . FILMS COMPARED: The present examination has been compared to prior imaging studies performed at [facility] on 02/11/2009, 11/30/2013 and 04/16/2016. MAMMOGRAM FINDINGS: There are scattered fibroglandular densities. There are no suspicious masses, suspicious calcifications, or new areas of architectural distortion. IMPRESSION: THERE IS NO MAMMOGRAPHIC EVIDENCE OF MALIGNANCY. A ROUTINE FOLLOW-UP MAMMOGRAM IN 1 YEAR IS RECOMMENDED. THE RESULTS OF THIS EXAM WERE SENT TO THE PATIENT. ACR BI-RADS Category 1 - Negative MAMMOGRAPHY NOTE: 1. A negative mammogram report should not delay a biopsy if a dominant of clinically suspicious mass is present. 2. Approximately 10% to 15% of breast cancers are not detected by mammography. 3. Adenosis and dense breasts may obscure an underlying neoplasm.
== END 2018-09-18 14:34 | disposition home or self-care (01) ==
LOC: BICMAMMO 14:33
PROVIDERS: ATTEND Family Medicine
DX: Z12.31 Encounter for screening mammogram for malignant neoplasm of breast (principal); Z13.820 Encounter for screening for osteoporosis; M81.0 Age-related osteoporosis without current pathological fracture; Z78.0 Asymptomatic menopausal state
CPT/HCPCS: 77063; 77067; 77080

== ENCOUNTER 2019-09-26 13:53 | Emergency (ER) | payer MEDICARE, OTHER ==
[2019-09-26] MEDS ORDERED: Lidocaine 1% (PF) 30 ML VIAL ONE (14:35)
[2019-09-26] MEDS ORDERED: Adacel (T-DAP) 0.5 ML SYRINGE ONE (14:35)
--- NOTE | 2019-09-26 15:10 | RAD ---
EXAM: XR Hand Rt 3 View STANDARD PROVIDED CLINICAL HISTORY: Pain FINDINGS: There is no evidence for fracture or other acute osseous abnormality. Alignment appears anatomic. IP and first CMC degenerative changes are seen. IMPRESSION: No evidence for an acute osseous abnormality. If there is persistent clinical concern, conservative m anagement and follow-up imaging advised.
--- NOTE | 2019-09-26 15:31 | CT ---
Exam: CT brain PROVIDED CLINICAL HISTORY: Head injury COMPARISON: None FINDINGS: The ventricular system is normal in size and morphology. No evidence for intracranial hemorrhage or mass effect. The extracranial soft tissues and osseous structures demonstrate no evidence for an acute abnormality. IMPRESSION: No evidence for intracranial hemorrhage or mass effect.
== END 2019-09-26 16:29 | disposition home or self-care (01) ==
LOC: ERS 13:53
DX: S01.21XA Laceration without foreign body of nose, initial encounter (principal); M79.644 Pain in right finger(s); I11.0 Hypertensive heart disease with heart failure; I50.9 Heart failure, unspecified; I34.1 Nonrheumatic mitral (valve) prolapse; E78.00 Pure hypercholesterolemia, unspecified; Z79.891 Long term (current) use of opiate analgesic; Z79.899 Other long term (current) drug therapy; W01.0XXA Fall on same level from slipping, tripping and stumbling without subsequent striking against object, initial encounter
CPT/HCPCS: 12011; 70450; 90471; 90715; J2001

== ENCOUNTER 2019-12-22 08:29 | Outpatient (CLI) | payer MEDICARE, OTHER ==
--- NOTE | 2019-12-22 10:22 | MMO ---
Bilateral MAMMO Bilat Screen [facility]. CLINICAL HISTORY: Patient is 69 years old and is seen for screening. The patient has no family history of breast cancer. The patient has no personal history of cancer. VIEWS: The views performed were: bilateral craniocaudal with tomosynthesis and bilateral mediolateral oblique with tomosynthesis. FILMS COMPARED: The present examination has been compared to prior imaging studies performed at [facility] on 02/11/2009, 11/30/2013, 04/16/2016 and 09/18/2018. This study has been interpreted with the assistance of computer-aided detection. MAMMOGRAM FINDINGS: There are scattered fibroglandular densities. Finding 1: There are stable benign appearing calcifications seen in both breasts. Finding 2: There are stable benign appearing densities seen in both breasts. There are no suspicious masses, suspicious calcifications, or new areas of architectural distortion. IMPRESSION: THERE IS NO MAMMOGRAPHIC EVIDENCE OF MALIGNANCY. A ROUTINE FOLLOW-UP MAMMOGRAM IN 1 YEAR IS RECOMMENDED. THE RESULTS OF THIS EXAM WERE SENT TO THE PATIENT. ACR BI-RADS Category 2 - Benign finding MAMMOGRAPHY NOTE: 1. A negative mammogram report should not delay a biopsy if a dominant of clinically suspicious mass is present. 2. Approximately 10% to 15% of breast cancers are not detected by mammography. 3. Adenosis and dense breasts may obscure an underlying neoplasm. Reported by: CELI TRUJILLO MD Electonically Signed: [id number]
== END 2019-12-22 08:30 | disposition home or self-care (01) ==
LOC: BICMAMMO 08:29
PROVIDERS: ATTEND Family Medicine
DX: Z12.31 Encounter for screening mammogram for malignant neoplasm of breast (principal)
CPT/HCPCS: 77063; 77067

== ENCOUNTER 2021-07-09 18:03 | Emergency (ER) | payer MEDICARE, OTHER ==
[2021-07-09] MEDS ORDERED: Boostrix 0.5 ML (Tdap) VIAL ONE (18:46)
[2021-07-09] MEDS ORDERED: HYDROcodone/Acetaminophen 7.5/325 mg Tablet ONE (18:52)
== END 2021-07-09 19:41 | disposition home or self-care (01) ==
LOC: ERS 18:03
DX: S42.202A Unspecified fracture of upper end of left humerus, initial encounter for closed fracture (principal); S00.83XA Contusion of other part of head, initial encounter; I11.0 Hypertensive heart disease with heart failure; I50.9 Heart failure, unspecified; E78.5 Hyperlipidemia, unspecified; Z79.899 Other long term (current) drug therapy; W17.89XA Other fall from one level to another, initial encounter
CPT/HCPCS: 70450; 72125; 90471; 90715

== ENCOUNTER 2021-12-27 13:13 | Outpatient (CLI) | payer MEDICARE, OTHER | END 2021-12-27 13:14 | disposition home or self-care (01) | LOC: ULT 13:13 | PROVIDERS: ATTEND Family Medicine | DX: I42.0 Dilated cardiomyopathy (principal); I44.7 Left bundle-branch block, unspecified; I08.8 Other rheumatic multiple valve diseases | CPT/HCPCS: 93306 ==

== ENCOUNTER 2023-01-11 08:51 | Outpatient (CLI) | payer MEDICARE, OTHER | END 2023-01-11 08:52 | disposition home or self-care (01) | LOC: BICMAMMO 08:51 | PROVIDERS: ATTEND Family Medicine | DX: M81.0 Age-related osteoporosis without current pathological fracture (principal) | CPT/HCPCS: 77080 ==

== ENCOUNTER 2025-01-27 14:05 | Outpatient (CLI) | payer MEDICARE, OTHER | END 2025-01-27 14:06 | disposition home or self-care (01) | LOC: BICMAMMO 14:05 | PROVIDERS: ATTEND Family Medicine | DX: Z78.0 Asymptomatic menopausal state (principal); M81.0 Age-related osteoporosis without current pathological fracture | CPT/HCPCS: 77080 ==